=== PATIENT | female | born 1980 | race Caucasian/White ===

== ENCOUNTER 2017-03-26 03:34 | Inpatient (IN) | payer OTHER ==
[~2017-03-26] VITALS: Ht 167.6 cm; Wt 83.9 kg
--- NOTE | 2017-03-26 03:46 | ED GI/GU/ABDOMINAL COMPLAINT ---
History of Present Illness General Chief Complaint: Abdominal Pain/Flank Pain Stated Complaint: ABD PAIN X3 HRS Source: patient Exam Limitations: no limitations Vital Signs & Intake/Output Vital Signs & Intake/Output Vital Signs Date Time Temp Pulse Resp B/P B/P Pulse O2 O2 Flow FiO2 Mean Ox Delivery Rate 03/26 0547 98.0 69 18 125/65 100 Room Air 03/26 0632 98.0 60 18 122/58 100 Room Air 03/26 0528 70 132/64 03/26 0402 Room Air 03/26 0358 97.1 99 20 122/72 96 Room Air Allergies Coded Allergies: NO KNOWN ALLERGIES (09/19/12) Reconcile Medications No Known Home Medications Triage Nurses Notes Reviewed? yes ? n Is pt currently ? No Duration: hour(s):, waxing and waning Timing: recent history Quality/Severity: cramping Location: lower and mid abdomen Radiation: no radiation Activities at Onset: eating Prior Abdominal Problems: similar symptoms Modifying Factors: Worsens With: movement, palpation. Associated Symptoms: nausea/vomiting HPI: 37 yo woman in prior good health presents with lower abdomen for the past 3-4 hours. She notes that she was at a [employer] party last night and may have eaten something suspicious. She had a normal BM last night. She notes feeling nauseous, with diffuse abdominal discomfort. She has no fever, chills, dysuria, vaginal bleeding, diarrhea, vomiting. Upon further questioning, pt shares becoming breathless after minimal exertion. "I get tired when I walk in the super market" for the past month. Past History Travel History Traveled to [place] past 21 day No Medical History Any Pertinent Medical History? 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 No Review of Systems Review of Systems Constitutional: Reports: no symptoms. EENTM: Reports: no symptoms. Respiratory: Reports: no symptoms. Cardiovascular: Reports: no symptoms. GI: Reports: no symptoms. Genitourinary: Reports: no symptoms. Musculoskeletal: Reports: no symptoms. Skin: Reports: no symptoms. Neurological/Psychological: Reports: no symptoms. Hematologic/Endocrine: Reports: no symptoms. Immunologic/Allergic: Reports: no symptoms. All Other Systems: Reviewed and Negative Physical Exam Physical Exam General Appearance: well developed/nourished, mild distress Head: atraumatic, normal appearance Eyes: Bilateral: normal appearance, PERRL, EOMI. Ears, Nose, Throat, Mouth: hearing grossly normal Neck: normal inspection, supple, full range of motion, normal alignment Respiratory: normal breath sounds, chest non-tender, no respiratory distress, quiet respiration, lungs clear Cardiovascular: regular rate/rhythm Gastrointestinal: normal bowel sounds, soft, lower abd tenderness to palpation. no rebound. no guarding. Rectal: normal rectal tone, heme negative stool Back: normal inspection Extremities: normal range of motion, evidence of injury, pelvis stable, injury present Core Measures ACS in differential dx? No Sepsis Present: No Sepsis Focused Exam Completed? No Progress Differential Diagnosis: UTI/pyelo, fibroids vs gastro vs food poisoning vs other. Plan of Care: Orders Procedure Date/time Status BLOOD PRODUCT PICKUP 03/26 607 Active LEUKOCYTE POOR (PACKED CELLS) 03/26 605 Active Add-on Test (ER Only) 03/26 517 Active URINALYSIS 03/26 345 Complete TROPONIN LEVEL 03/26 345 Complete LIPASE 03/26 345 Complete HEPATIC FUNCTION PANEL 03/26 345 Complete HUMAN BETA HCG SCREEN 03/26 345 Complete CBC WITHOUT DIFFERENTIAL 03/26 345 Active BASIC METABOLIC PANEL 03/26 345 Complete AMYLASE 03/26 345 Complete EKG 03/26 345 Active TYPE & SCREEN (NOT X-MATCH) 03/26 345 Active Current Medications Sig/[place] Start time Last Medication Dose Stop Time Status Admin Morphine Sulfate 4 MG ONCE ONE 03/26 614 CAN (Morphine) 03/26 615 Laboratory Tests 03/26/17 0452: Anion Gap 12, Estimated GFR > 60, BUN/Creatinine Ratio 17.5, Glucose 117 H, Calcium 8.3 L, Total Bilirubin 0.1 L, Direct Bilirubin 0.1, AST 16, ALT 35, Alkaline Phosphatase 49, Troponin I 0.03, Total Protein 6.1 L, Albumin 3.7, Amylase 45, Lipase 109, Total Beta HCG NEGATIVE, CBC w Diff MAN DIFF ORDERED, RBC 2.85 L, MCV 54.5 L, MCH 15.3 L, MCHC 28.1 L, RDW 20.1 H, MPV 7.0 L, Gran % 88.1 H, Lymphocytes % 7.1 L, Monocytes % 4.7, Eosinophils % 0, Basophils % 0.1, Absolute Granulocytes 3.8, Segmented Neutrophils 90 H, Absolute Lymphocytes 0.3 L, Lymphocytes 7 L, Monocytes 3, Absolute Monocytes 0.2, Absolute Eosinophils 0, Absolute Basophils 0, Platelet Estimate ADEQUATE, Hypochromic-Microcytic 3+, Poikilocytosis 1+, Ovalocytes 1+ 03/26/17 0352: Urinalysis MANY H, Urine Color STRAW, Urine Clarity CLEAR, Urine pH 6.5, Ur Specific [place] 1.020, Urine Protein NEG, Urine Ketones NEG, Urine Nitrite NEG, Urine Bilirubin NEG, Urine Urobilinogen 0.2, Ur Leukocyte Esterase NEG, Ur Microscopic SEDIMENT EXAMINED, Urine RBC 10-15 H, Urine WBC 3-5 H, Ur Epithelial Cells MANY H, Urine Bacteria MOD H, Urine Mucus MOD H, Urine Hemoglobin SMALL H, Urine Glucose NEG Diagnostic Imaging: Viewed by Me: CT Scan. Discussed w/RAD: CT Scan. Radiology Impression: PATIENT: AGUSTIN ROLDAN PRESENT AGE: 37 PATIENT ACCOUNT NO: [id number] : 78 LOCATION: [facility] ORDERING PHYSICIAN: Steve Hernandez MD SERVICE DATE: 03/26/17 EXAM TYPE: CAT - CT ABD & PELVIS W/O IV CONTRAS EXAMINATION: CT ABDOMEN AND PELVIS WITHOUT CONTRAST CLINICAL INFORMATION: Right lower quadrant pain. Left lower quadrant pain. COMPARISON: None TECHNIQUE: Multidetector volumetric imaging was performed from the superior aspect of the liver through the pubic symphysis. Sagittal and coronal reformatted images were obtained on the technologist's workstation. DLP: 589.80 mGy-cm FINDINGS: LUNG BASES: The visualized lung bases are unremarkable. LIVER, GALLBLADDER, AND BILIARY TREE: The liver is normal in size, shape, and attenuation. No focal hepatic lesion or biliary ductal dilatation is present. The gallbladder is unremarkable with no evidence of radiopaque gallstones, gallbladder wall thickening, or obvious pericholecystic inflammatory changes. PANCREAS: Unremarkable. SPLEEN: Unremarkable. ADRENAL GLANDS: Unremarkable. KIDNEYS AND URETERS: There is a nonobstructive 1 mm stone in the midpole of the left kidney. There is no stone in the right kidney. There is no hydronephrosis and no ureteral calculi. BLADDER: Unremarkable. GASTROINTESTINAL TRACT: Status post gastric bypass surgery. There is no acute abnormality of the bowel. No bowel junction. No bowel wall thickening or edema. Scattered stool in the colon. The appendix is normal. ABDOMINAL WALL: No significant hernia is appreciated. LYMPH NODES: Normal. VASCULAR: Unremarkable. PELVIC VISCERA: Uterus is retroverted. There are calcified fibroids within the uterus. No adnexal abnormality. OSSEOUS STRUCTURES: Unremarkable. IMPRESSION: No acute abnormality CT scan abdomen pelvis. Status post gastric bypass. No acute change of bowel. Normal appendix. There is a 1 mm nonobstructive stone in the left kidney. No hydronephrosis, no ureteral calculi. DICTATED BY: Abraham Bass MD DATE/TIME DICTATED:03/26/17618 MANAGER ANIMAL:BERTHA DATE/TIME TRANSCRIBED:618 CONFIDENTIAL, DO NOT COPY WITHOUT APPROPRIATE AUTHORIZATION. < Electronically signed in Other Vendor System> SIGNED BY: Abraham Bass MD 625 Initial ED EKG: normal axis, normal intervals, normal p-waves, normal QRS complex, normal sinus rhythm Departure Departure Disposition: STILL A PATIENT Condition: Stable Clinical Impression Primary Impression: Abdominal pain Secondary Impressions: Severe anemia Referrals: Patient Has No Primary Care Dr (PCP/Family) Departure Forms: Customer Survey General Discharge Information Prescriptions: Current Visit Scripts No Known Home Medications Observation Note Spoke With: Thiago ALCARAZ,[facility] Patient In: Non-ED OBS Care Area Rationale for Observation: My rational for observation is as follows . pt with anemia merits blood transfusion and workup/ gi consult, serial hct. call placed to GI.
[2017-03-26 04:38] LABS: ABSOLUTE BASOPHIL COUNT 0 /CUMM (0.0-0.2); ABSOLUTE EOSINOPHIL COUNT 0 /CUMM (0.0-0.7)
[2017-03-26 04:51] LABS: EOSINOPHIL % 0 % (0-5)
[2017-03-26 05:14] LABS: ABSOLUTE GRANULOCYTE CT 3.8 /CUMM (1.4-6.5); ABSOLUTE LYMPH COUNT 0.3 /CUMM (1.2-3.4); ABSOLUTE MONOCYTE COUNT 0.2 /CUMM (0.10-0.60); BASOPHIL % 0.1 % (0.0-2.0); GRANULOCYTE % 88.1 % (42.2-75.2); MEAN CORPUSCULAR HGB 15.3 PG (27.0-31.0); MEAN CORPUSCULAR HGB CONC 28.1 G/DL (33.0-37.0); MEAN CORPUSCULAR VOLUME 54.5 FL (81.0-99.0); PLATELET COUNT 308 /CUMM (130-400); RBC DISTRIBUTION WIDTH 20.1 % (11.5-14.5); RED BLOOD CELL CT 2.85 /CUMM (4.20-5.40); WHITE BLOOD CELL COUNT 4.3 /CUMM (4.8-10.8)
[2017-03-26 05:17] LABS: HEMATOCRIT 15.5 % (37-47)
--- NOTE | 2017-03-26 06:26 | CT SCAN REPORT ---
EXAMINATION: CT ABDOMEN AND PELVIS WITHOUT CONTRAST CLINICAL INFORMATION: Right lower quadrant pain. Left lower quadrant pain. COMPARISON: None TECHNIQUE: Multidetector volumetric imaging was performed from the superior aspect of the liver through the pubic symphysis. Sagittal and coronal reformatted images were obtained on the technologist's workstation. DLP: 589.80 mGy-cm FINDINGS: LUNG BASES: The visualized lung bases are unremarkable. LIVER, GALLBLADDER, AND BILIARY TREE: The liver is normal in size, shape, and attenuation. No focal hepatic lesion or biliary ductal dilatation is present. The gallbladder is unremarkable with no evidence of radiopaque gallstones, gallbladder wall thickening, or obvious pericholecystic inflammatory changes. PANCREAS: Unremarkable. SPLEEN: Unremarkable. ADRENAL GLANDS: Unremarkable. KIDNEYS AND URETERS: There is a nonobstructive 1 mm stone in the midpole of the left kidney. There is no stone in the right kidney. There is no hydronephrosis and no ureteral calculi. BLADDER: Unremarkable. GASTROINTESTINAL TRACT: Status post gastric bypass surgery. There is no acute abnormality of the bowel. No bowel junction. No bowel wall thickening or edema. Scattered stool in the colon. The appendix is normal. ABDOMINAL WALL: No significant hernia is appreciated. LYMPH NODES: Normal. VASCULAR: Unremarkable. PELVIC VISCERA: Uterus is retroverted. There are calcified fibroids within the uterus. No adnexal abnormality. OSSEOUS STRUCTURES: Unremarkable. IMPRESSION: No acute abnormality CT scan abdomen pelvis. Status post gastric bypass. No acute change of bowel. Normal appendix. There is a 1 mm nonobstructive stone in the left kidney. No hydronephrosis, no ureteral calculi.
--- NOTE | 2017-03-26 07:22 | History & Physical ---
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
--- NOTE | 2017-03-26 07:23 | History & Physical ---
Delfino ALCARAZ,[facility] 03/26/17 0723: General Information and HPI Statement: I have seen and personally examined AGUSTIN ROLDAN and documented this H&P. The patient is a 37 year old F who presented with a patient stated chief complaint of abdominal pain. Exam Limitations: no limitations History of Present Illness: This is a 37-year-old lady with a past medical history of uterine fibroids, menorrhagia, surgical hx of cystectomy 2004, gastric bpass in 2012 a, presents to [place] ED with chief complaint of acute onset of abdominal pain. Patient reports being awakened by abdominal pain which she describes as sharp pain located in the hypogastric area without any radiation features. Associated symptoms include nausea,bloating, but no vomiting,no fever, diarrhea or bloody stools. Abdominal pain is not related to food intake. She denies any change in her diet or eating any new foods. She does report that she had "rum" before she went to bed. During review of system patient does endorse a history of fatigue and palpitation on exertion. her last menses was 2 weeks ago which she reports is normal heavy, denies any vaginal bleeding. Allergies/Medications Allergies: Coded Allergies: NO KNOWN ALLERGIES (09/19/12) Home Med list No Known Home Medications Observation Initial Note - I have personally examined AGUSTIN ROLDAN on 03/26/17 at 1851. The disposition of AGUSTIN ROLDAN is uncertain at this time and before a determination can be made, she requires a period of observation for the following reasons symptomatic anemia. 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 EENTM: Reports: see HPI. Cardiovascular: Reports: palpitations. Respiratory: Reports: short of breath. GI: Reports: abdominal pain, bloating. Genitourinary: Reports: no symptoms. Musculoskeletal: Reports: no symptoms. Skin: Reports: no symptoms. Neurological/Psychological: Reports: no symptoms. Hematologic/Endocrine: Reports: no symptoms. Immunologic/Allergic: Reports: no symptoms. All Other Systems: Reviewed and Negative Exam & Diagnostic Data Last 24 Hrs of Vital Signs/I&O Vital Signs Date Time Temp Pulse Resp B/P B/P Pulse O2 O2 Flow FiO2 Mean Ox Delivery Rate 03/26 1036 98.4 96 18 132/84 99 Room Air 03/26 0912 98.2 74 18 142/69 98 Room Air 03/26 0754 98.1 72 18 141/80 97 Room Air 03/26 0647 98.0 69 18 125/65 100 Room Air 03/26 0632 98.0 60 18 122/58 100 Room Air 03/26 0528 70 132/64 03/26 0402 Room Air 03/26 0358 97.1 99 20 122/72 96 Room Air Intake & Output 03/26 1600 03/26 0800 03/26 0000 Intake Total 350 Output Total 60 Balance 350 -60 Intake, Blood 350 Product Output, Urine 60 Patient 70.307 kg Weight Weight Reported by Patient Measurement Method Physical Exam General Appearance Alert, Oriented X3, Cooperative Skin No Significant Lesion Skin Temp/Moisture Exam: Warm/Dry Sepsis Skin Exam (color): Normal for Ethnicity HEENT pale conjuctiva Neck Supple, No JVD Lymphatic Cervical nl Cardiovascular Regular Rate, Normal S1, Normal S2 Lungs Clear to Auscultation, Normal Air Movement Abdomen Normal Bowel Sounds, Soft, mild tenderness on palpation of hpogastric area. No guearding or rebound tenderness Neurological Normal Speech Extremities No Clubbing, No Cyanosis, No Edema Vascular Normal Pulses, Pulses Symmetrical Assessment/Plan Assessment: This is a 37-year-old with a past medical history of uterine fibroids, menorrhagia, presents with acute onset of abdominal pain/bloating and a history of fatigue shortness of breath on exertion found to have a hemoglobin of 4.4 and a hematocrit of 15.5. Impression * Abdominal pain. * Symptomatic anemia given the hemoglobin of 4.4 , fatigue and shortness of breath on exertion. The low MCV and low ferritn and Iron suggests iron deficiency anemia. Her acute significant worsening of anemia is multifactorial given that she is not taking any iron supplements, she has a history of menorrhagia probably secondary to the uterine fibroids, and a decreased absorption of iron that can be seen in patients who have undergone gastric bypass. Plan Place in general med observation 2 units of PRBC already ordered Zofran 4 mg every 4-6 hours for nausea Avoid NSAIDs for pain control Will obtain hematology consult, patient will probably need to be iron infusiona in the future. However she should be started on oral Ferrous sulfate trial upon discharge. The 2 units of PRBC will provide sufficient iron for now. Will obtain MORTGAGE PROCESSING CLERK consult for the uterine fibroids which could be contributory to the anemia given the peers of menorrhagia/ As Ranked By This Provider Problem List: 1. Severe anemia 2. Abdominal pain Core Measures/Misc (11/05) Acute Coronary Syndrome ACS Diagnosis: No Congestive Heart Failure Congestive Heart Failure Diagnosis No Cerebrovascular Accident CVA/TIA Diagnosis: No VTE (View Protocol) VTE Risk Factors Acute Medical Illness No Mechanical VTE Prophylaxis d/t N/A MechProphylax Ordered No VTE Pharm Prophylaxis d/t Medical Contraindication Sepsis (View protocol) Sepsis Present: No Annita Lira MD 03/26/17 1407: Attending MD Review Statement Attending Statement Attending MD Statement: examined this patient, discuss w/resident/PA/NUTRITIONAL YEAST SUPERVISOR, agreed w/resident/PA/NUTRITIONAL YEAST SUPERVISOR, reviewed EMR data (avail), discussed with nursing, discussed with case mgmt, reviewed images, amended to note Attending Assessment/Plan: 37-year-old female with past medical history significant for uterine fibroids, menorrhagia, history of gastric bypass in 2012 presented with abdominal pain. Pain started last night. Patient went to a alliance party and ate regular food which included some potato skins, reviewing the as well as some potato chips. Pain started around midnight and then gradually got worse. Initially she thought that she might be having some gas oh she drank some giovanny noemi and went to the bathroom and tried to have a bowel movement. The pain did not get better and she started to dry heave. She presented to the emergency room around 3:00 in the morning. Workup showed that she was profoundly anemic with hemoglobin 4.4 and hematocrit 15.5. Previous H&H that we have in the system is from 2011. Patient was anemic at that time but not this significantly. Patient also admits that she's been getting short of breath and developing dyspnea on exertion with minimal exertion lately. She has menorrhagia and passes clots. Stool is black negative in the emergency room. Vital Signs Date Time Temp Pulse Resp B/P B/P Pulse O2 O2 Flow FiO2 Mean Ox Delivery Rate 03/26 1406 97.0 68 18 128/68 100 Room Air 03/26 1232 98.2 74 18 139/67 100 Room Air 03/26 1036 98.4 96 18 132/84 99 Room Air 03/26 0912 98.2 74 18 142/69 98 Room Air 03/26 0754 98.1 72 18 141/80 97 Room Air 03/26 0647 98.0 69 18 125/65 100 Room Air 03/26 0632 98.0 60 18 122/58 100 Room Air 03/26 0528 70 132/64 02/ 0402 Room Air 03/26 0358 97.1 99 20 122/72 96 Room Air on exam; aox3, nad. cv; s1,s2, rrr resp; clear abd; soft, nt, bs+ ext; no edema Laboratory Tests 03/26 03/26 0452 0352 Chemistry Sodium (137 - 145 mmol/L) 139 Potassium (3.5 - 5.1 mmol/L) 4.1 Chloride (98 - 107 mmol/L) 105 Carbon Dioxide (22 - 30 mmol/L) 22 Anion Gap (5 - 16) 12 BUN (7 - 17 mg/dL) 7 Creatinine (0.5 - 1.0 mg/dL) 0.4 L Estimated GFR (>60 ml/min) > 60 BUN/Creatinine Ratio (7 - 25 %) 17.5 Glucose (65 - 99 mg/dL) 117 H Calcium (8.4 - 10.2 mg/dL) 8.3 L Iron (37 - 170 ug/dL) 12 L TIBC (265 - 497 ug/dL) 490 Ferritin (6.24 - 137 ng/mL) 0.9 L Total Bilirubin (0.2 - 1.3 mg/dL) 0.1 L Direct Bilirubin (< 0.4 mg/dL) 0.1 AST (14 - 36 U/L) 16 ALT (9 - 52 U/L) 35 Alkaline Phosphatase (<127 U/L) 49 Troponin I (< 0.11 ng/ml) 0.03 Total Protein (6.3 - 8.2 g/dL) 6.1 L Albumin (3.5 - 5.0 g/dL) 3.7 Amylase (30 - 110 U/L) 45 Lipase (23 - 300 U/L) 109 Total Beta HCG (NEGATIVE) NEGATIVE Hematology CBC w Diff MAN DIFF ORDERED WBC (4.8 - 10.8 /CUMM) 4.3 L RBC (4.20 - 5.40 /CUMM) 2.85 L Hgb (12.0 - 16.0 G/DL) 4.4 *L Hct (37 - 47 %) 15.5 *L MCV (81.0 - 99.0 FL) 54.5 L MCH (27.0 - 31.0 PG) 15.3 L MCHC (33.0 - 37.0 G/DL) 28.1 L RDW (11.5 - 14.5 %) 20.1 H Plt Count (130 - 400 /CUMM) 308 MPV (7.4 - 10.4 FL) 7.0 L Gran % (42.2 - 75.2 %) 88.1 H Lymphocytes % (20.5 - 51.1 %) 7.1 L Monocytes % (1.7 - 9.3 %) 4.7 Eosinophils % (0 - 5 %) 0 Basophils % (0.0 - 2.0 %) 0.1 Absolute Granulocytes (1.4 - 6.5 /CUMM) 3.8 Segmented Neutrophils (42.2 - 75.2 %) 90 H Absolute Lymphocytes (1.2 - 3.4 /CUMM) 0.3 L Lymphocytes (20.5 - 51.1 %) 7 L Monocytes (1.7 - 9.3 %) 3 Absolute Monocytes (0.10 - 0.60 /CUMM) 0.2 Absolute Eosinophils (0.0 - 0.7 /CUMM) 0 Absolute Basophils (0.0 - 0.2 /CUMM) 0 Platelet Estimate (ADEQUATE) ADEQUATE Hypochromic-Microcytic 3+ Poikilocytosis 1+ Ovalocytes 1+ Urines Urinalysis MANY H Urine Color (YEL,AMB,STR) STRAW Urine Clarity (CLEAR) CLEAR Urine pH (5.0 - 8.0) 6.5 Ur Specific [place] (1.001 - 1.035) 1.020 Urine Protein (NEG,<30 MG/DL) NEG Urine Ketones (NEG) NEG Urine Nitrite (NEG) NEG Urine Bilirubin (NEG) NEG Urine Urobilinogen (0.1 - 1.0 EU/dl) 0.2 Ur Leukocyte Esterase (NEG) NEG Ur Microscopic SEDIMENT EXAMINED Urine RBC (0 - 5 /HPF) 10-15 H Urine WBC (0 - 2 /HPF) 3-5 H Ur Epithelial Cells (NONE,FEW) MANY H Urine Bacteria (NEG/NONE) MOD H Urine Mucus (FEW,NONE) MOD H Urine Hemoglobin (NEG) SMALL H Urine Glucose (N MG/DL) NEG A/P; 37-year-old female with past medical history significant for uterine fibroids, menorrhagia, history of gastric bypass in 2012 is placed on general medicine observation with the abdominal pain as well as acute anemia. CT abdomen and pelvis is negative for any acute pathology. Patient's stool is guaiac negative. Patient has microcytic anemia and iron studies show profoundly low iron levels. We'll consult hematology. We'll also consult MORTGAGE PROCESSING CLERK for these fibroids. Patient has been started on clear liquid diet. It will be advanced as she could tolerate. DVT prophylaxis; ALPS. Full code.
[2017-03-26 15:41] LABS: ABSOLUTE BASOPHIL COUNT 0.1 /CUMM (0.0-0.2); ABSOLUTE EOSINOPHIL COUNT 0 /CUMM (0.0-0.7); ABSOLUTE GRANULOCYTE CT 3.4 /CUMM (1.4-6.5); ABSOLUTE LYMPH COUNT 0.9 /CUMM (1.2-3.4); ABSOLUTE MONOCYTE COUNT 0.5 /CUMM (0.10-0.60); BASOPHIL % 1.9 % (0.0-2.0); EOSINOPHIL % 0.2 % (0-5); GRANULOCYTE % 69.2 % (42.2-75.2); HEMATOCRIT 20.1 % (37-47); MEAN CORPUSCULAR HGB CONC 30.3 G/DL (33.0-37.0); MEAN PLATELET VOLUME 6.9 FL (7.4-10.4); PLATELET COUNT 313 /CUMM (130-400); RBC DISTRIBUTION WIDTH 29.2 % (11.5-14.5); RED BLOOD CELL CT 3.28 /CUMM (4.20-5.40); WHITE BLOOD CELL COUNT 4.9 /CUMM (4.8-10.8)
[2017-03-26 15:48] LABS: MEAN CORPUSCULAR HGB 18.6 PG (27.0-31.0); MEAN CORPUSCULAR VOLUME 61.3 FL (81.0-99.0)
--- NOTE | 2017-03-26 15:53 | Cons- OBGYN ---
General Information and HPI Consulting Request Date of Consult: 03/26/17 Requested By: Annita Lira MD Reason for Consult: Anemia and AUB and fibroid uterus Source of Information: patient, old records Exam Limitations: no limitations History of Present Illness: Patient is a 37 year old female who presents for acute lower abdominal pain. Patient with recent completion of menses. Patient with 6 month to one year history of heavier menstrual cycles where the first 3 days are heavy (changing pads every 3 hours) and total cycle length of 6 days. Allergies/Medications Allergies: Coded Allergies: NO KNOWN ALLERGIES (09/19/12) Home Med List: No Known Home Medications Current Medications: Current Medications Sig/[place] Start time Last Medication Dose Route Stop Time Status Admin Acetaminophen 1,000 MG Q8P PRN 03/26 1245 AC IV Acetaminophen 1,000 MG ONCE ONE 03/26 0445 DC 03/26 N/A 1 UNIT IV 03/26 045 0441 Acetaminophen 0 .STK-MED ONE 03/26 0438 DC IV Hydromorphone HCl 0.4 MG Q4P PRN 03/26 1245 AC IV Hydromorphone HCl 0 .STK-MED ONE 03/26 0647 DC .ROUTE Hydromorphone HCl 0.5 MG ONCE ONE 03/26 0630 DC 03/26 IV 03/26 0631 0645 Ketorolac 30 MG ONCE ONE 03/26 0445 DC 03/26 Tromethamine IV 03/26 0446 0441 Ketorolac 0 .STK-MED ONE 03/26 0439 DC Tromethamine .ROUTE Morphine Sulfate 4 MG ONCE ONE 03/26 0615 CAN IV 03/26 0616 Ondansetron HCl 0 .STK-MED ONE 03/26 1052 DC .ROUTE Ondansetron HCl 4 MG Q6P PRN 03/26 1015 AC 03/26 IV 1049 Ondansetron HCl 4 MG ONCE ONE 03/26 0445 DC 03/26 IV 03/26 0446 0441 Ondansetron HCl 0 .STK-MED ONE 03/26 0439 DC .ROUTE Sodium Chloride 1,000 ML BOLUS ONE 03/26 0430 DC 03/26 IV 03/26 0529 0441 Past History Medical History Blood Transfusion Hx: No Neurological: NONE EENT: NONE Cardiovascular: NONE Respiratory: NONE Gastrointestinal: GASTRIC BYPASS 2013 Hepatic: NONE Renal: NONE Musculoskeletal: NONE Psychiatric: NONE Endocrine: NONE Blood Disorders: anemia Cancer(s): NONE 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 Home Who Do You Live With? spouse, child Services at Home: None Primary Language: Setswana Smoking Status: Unknown If Ever Smoked ETOH Use: occasional use Illicit Drug Use: denies illicit drug use Living Will? unknown Power of Bonding Machine Setter/HCP? unknown Other Social History: Works at [employer] Functional Ability ADLs Independent: dressing, eating, toileting, bathing. Ambulation: independent IADLs Independent: shopping, housework, finances, food prep, telephone, transportation , medication admin. Employment History Employment: Employed Profession/Employer: [employer] Retired? no Review of Systems Review of Systems Constitutional: Reports: weakness. EENTM: Denies: no symptoms. Cardiovascular: Denies: no symptoms. Respiratory: Reports: short of breath. GI: Denies: no symptoms. Genitourinary: Denies: no symptoms. Musculoskeletal: Denies: no symptoms. Skin: Denies: no symptoms. Neurological/Psychological: Denies: no symptoms. Hematologic/Endocrine: Reports: bleeding. Immunologic/Allergic: Denies: no symptoms. All Other Systems: Reviewed and Negative Exam & Diagnostic Data Vital Signs and I&O Vital Signs Date Time Temp Pulse Resp B/P B/P Pulse O2 O2 Flow FiO2 Mean Ox Delivery Rate 03/26 1406 97.0 68 18 128/68 100 Room Air 03/26 1232 98.2 74 18 139/67 100 Room Air 03/26 1036 98.4 96 18 132/84 99 Room Air 03/26 0912 98.2 74 18 142/69 98 Room Air / 0754 98.1 72 18 141/80 97 Room Air 03/26 0647 98.0 69 18 125/65 100 Room Air 03/26 0632 98.0 60 18 122/58 100 Room Air 03/26 0528 70 132/64 / 0402 Room Air 03/26 0358 97.1 99 20 122/72 96 Room Air Intake & Output 03/26 1600 03/26 0800 / 0000 03/25 1600 03/25 0800 02 0000 Intake Total 350 Output Total 60 Balance 350 -60 Intake, Blood 350 Product Output, Urine 60 Patient 70.307 kg Weight Weight Reported by Patient Measurement Method Physical Exam General Appearance: well developed/nourished, no apparent distress, alert, comfortable Head: atraumatic, normal appearance Eyes: Bilateral: normal appearance. Neck: supple Respiratory: chest non-tender Cardiovascular: regular rate/rhythm Gastrointestinal: soft, non-tender Back: no vertebral tenderness Extremities: normal inspection Neurologic/Psych: no motor/sensory deficits, awake, alert, oriented x 3 Cranial Nerves: normal hearing, normal speech Skin: intact, normal color Reproductive: Normal female genitalia Pelvic: Appearance Normal, No Cervical Tenderness, No Discharge Other Physical Findings: No cmt Normal appearing size uterus No adnexal fullness No adnexal pain Cervix palpates normal Last 24 Hours of Labs: Laboratory Tests 03/26 03/26 1529 0452 Chemistry Sodium (137 - 145 mmol/L) 139 Potassium (3.5 - 5.1 mmol/L) 4.1 Chloride (98 - 107 mmol/L) 105 Carbon Dioxide (22 - 30 mmol/L) 22 Anion Gap (5 - 16) 12 BUN (7 - 17 mg/dL) 7 Creatinine (0.5 - 1.0 mg/dL) 0.4 L Estimated GFR (>60 ml/min) > 60 BUN/Creatinine Ratio (7 - 25 %) 17.5 Glucose (65 - 99 mg/dL) 117 H Calcium (8.4 - 10.2 mg/dL) 8.3 L Iron (37 - 170 ug/dL) 12 L TIBC (265 - 497 ug/dL) 490 Ferritin (6.24 - 137 ng/mL) 0.9 L Total Bilirubin (0.2 - 1.3 mg/dL) 0.1 L Direct Bilirubin (< 0.4 mg/dL) 0.1 AST (14 - 36 U/L) 16 ALT (9 - 52 U/L) 35 Alkaline Phosphatase (<127 U/L) 49 Troponin I (< 0.11 ng/ml) 0.03 Total Protein (6.3 - 8.2 g/dL) 6.1 L Albumin (3.5 - 5.0 g/dL) 3.7 Amylase (30 - 110 U/L) 45 Lipase (23 - 300 U/L) 109 Total Beta HCG (NEGATIVE) NEGATIVE Hematology CBC w Diff Pending MAN DIFF ORDERED WBC (4.8 - 10.8 /CUMM) Pending 4.3 L RBC (4.20 - 5.40 /CUMM) Pending 2.85 L Hgb (12.0 - 16.0 G/DL) Pending 4.4 *L Hct (37 - 47 %) Pending 15.5 *L MCV (81.0 - 99.0 FL) Pending 54.5 L MCH (27.0 - 31.0 PG) Pending 15.3 L MCHC (33.0 - 37.0 G/DL) Pending 28.1 L RDW (11.5 - 14.5 %) Pending 20.1 H Plt Count (130 - 400 /CUMM) Pending 308 MPV (7.4 - 10.4 FL) Pending 7.0 L Gran % (42.2 - 75.2 %) 88.1 H Lymphocytes % (20.5 - 51.1 %) 7.1 L Monocytes % (1.7 - 9.3 %) 4.7 Eosinophils % (0 - 5 %) 0 Basophils % (0.0 - 2.0 %) 0.1 Absolute Granulocytes (1.4 - 6.5 /CUMM) 3.8 Segmented Neutrophils (42.2 - 75.2 %) 90 H Absolute Lymphocytes (1.2 - 3.4 /CUMM) 0.3 L Lymphocytes (20.5 - 51.1 %) 7 L Monocytes (1.7 - 9.3 %) 3 Absolute Monocytes (0.10 - 0.60 /CUMM) 0.2 Absolute Eosinophils (0.0 - 0.7 /CUMM) 0 Absolute Basophils (0.0 - 0.2 /CUMM) 0 Platelet Estimate (ADEQUATE) ADEQUATE Hypochromic-Microcytic 3+ Poikilocytosis 1+ Ovalocytes 1+ 02/05 0352 Urines Urinalysis MANY H Urine Color (YEL,AMB,STR) STRAW Urine Clarity (CLEAR) CLEAR Urine pH (5.0 - 8.0) 6.5 Ur Specific [place] (1.001 - 1.035) 1.020 Urine Protein (NEG,<30 MG/DL) NEG Urine Ketones (NEG) NEG Urine Nitrite (NEG) NEG Urine Bilirubin (NEG) NEG Urine Urobilinogen (0.1 - 1.0 EU/dl) 0.2 Ur Leukocyte Esterase (NEG) NEG Ur Microscopic SEDIMENT EXAMINED Urine RBC (0 - 5 /HPF) 10-15 H Urine WBC (0 - 2 /HPF) 3-5 H Ur Epithelial Cells (NONE,FEW) MANY H Urine Bacteria (NEG/NONE) MOD H Urine Mucus (FEW,NONE) MOD H Urine Hemoglobin (NEG) SMALL H Urine Glucose (N MG/DL) NEG Imaging Results: Ct shows calcified fibroids Normal adnexae and no hydronephrosis Other Results: hct 15 Assessment/Plan Assessment/Plan 37 year old female with AUB and acute on chronic anemia. She presented with abdominal pain and weakness. To be admitted to Medicine. She is s/p 2 unit transfusion. Snagger. Clinically uterus is normal size. CT noted calcified fibroids (more likely to be degenerated) and no adnexal mass nor hydronephrosis. I discused that in my opinion her anemia was acute on chronic. Ddx of her AUB is that of adenomyosis (histroy of csection x 2) and or fibroids. At present she isnt bleeding so no need for intervention. If vaginal bleeding occurs than depoprovera 150 mg and provera 20-30 mg daily to control AUB. Pap negative 2016 and normal exam so next pap 2019. I stated that once she is discharged I will perform transvaginal ultrasound and saline contrast ultrsound to determine if AUB is related to submucus myoma or nor. I will also perform endometrial biopsy to assess for hyperplasia. Uterus is not significantly enlarged so she is a good candidate for hormonal containing IUD. Hematology. She is with gastric bypass which would increase her risk of anemia and in addition her nutrition is not high in iron containing foods. We discussed iron containing foods which may help boost her iron stores. She may need Iron infusion periodically in the future. Goal though now to reduce menstrual related blood loss. Recommend high dose vitamin c as well. FMH of breast cancer in one second and one primary relative but both menopausal in timing. So in my opinion no need for Brca testing however mammogram yearly indicated in my opinon. Face to face hospital time 35 minutes. Patient understands treatment plan Problem List: 1. Severe anemia 2. Abnormal uterine bleeding Consult Acknowledgment - Thank you for your consult request.
[2017-03-26 21:31] LABS: ABSOLUTE BASOPHIL COUNT 0 /CUMM (0.0-0.2); ABSOLUTE EOSINOPHIL COUNT 0 /CUMM (0.0-0.7); ABSOLUTE GRANULOCYTE CT 3.4 /CUMM (1.4-6.5); ABSOLUTE LYMPH COUNT 1.1 /CUMM (1.2-3.4); ABSOLUTE MONOCYTE COUNT 0.6 /CUMM (0.10-0.60); BASOPHIL % 0.7 % (0.0-2.0); EOSINOPHIL % 0.2 % (0-5); GRANULOCYTE % 66.1 % (42.2-75.2); HEMATOCRIT 22.1 % (37-47); MEAN CORPUSCULAR HGB 19.3 PG (27.0-31.0); MEAN CORPUSCULAR HGB CONC 30.5 G/DL (33.0-37.0); MEAN CORPUSCULAR VOLUME 63.4 FL (81.0-99.0); MEAN PLATELET VOLUME 7.8 FL (7.4-10.4); PLATELET COUNT 297 /CUMM (130-400); RBC DISTRIBUTION WIDTH 29.8 % (11.5-14.5); RED BLOOD CELL CT 3.49 /CUMM (4.20-5.40); WHITE BLOOD CELL COUNT 5.1 /CUMM (4.8-10.8)
[2017-03-26 22:24] VITALS: BP 124/80
[2017-03-27 06:12] VITALS: BP 100/64
--- NOTE | 2017-03-27 08:06 | PN-Observation ---
Observation Note Observation Note _ I have personally examined AGUSTIN ROLDAN. her disposition is uncertain at this time. Before a determination can be made, she requires continued observation for the following reasons symptomatic anemia. Assessment/Plan Assessment: This is a 37-year-old with a past medical history of uterine fibroids, menorrhagia, presents with acute onset of abdominal pain/bloating and a history of fatigue shortness of breath on exertion found to have a hemoglobin of 4.4 and a hematocrit of 15.5. Impression * Abdominal pain. * Symptomatic anemia given the hemoglobin of 4.4 on presentation, fatigue and shortness of breath on exertion. She is now s/p 3 units PRBC with hemoglobin at 6.1. The low MCV and low ferritn and Iron suggests iron deficiency anemia. Her acute significant worsening of anemia is multifactorial given that she is not taking any iron supplements, she has a history of menorrhagia probably secondary to the uterine fibroids, and a decreased absorption of iron that can be seen in patients who have undergone gastric bypass. Plan Will consider making patient a full admit given the still low h/h Will repeat CBC at 1900 and transfuse if needed Avoid NSAIDs for pain control Will start ferrous sulfate on discharge Problem List: 1. Iron deficiency anemia 2. Severe anemia Subjective Follow-up For: ANEMIA Subjective: Seen and examined at bedside. Does not endorse any increased shortness of breath, chest pain, palpitation. No acute overnight events reported by nursing staff. Review of Systems Constitutional: Reports: see HPI. Objective Last 24 Hrs of Vital Signs/I&O Vital Signs Date Time Temp Pulse Resp B/P B/P Pulse O2 O2 Flow FiO2 Mean Ox Delivery Rate 03/27 1432 98.3 82 18 100/70 98 03/27 0612 98.0 68 20 100/64 98 Room Air 03/26 2224 98.6 86 20 124/80 100 Room Air 03/26 2015 98.3 84 18 122/81 100 Room Air Intake & Output 03/27 1600 03/27 0800 03/27 0000 Intake Total 315 831 6156 Output Total Balance 507 284 6507 Intake, Blood 700 Product Intake, Oral 240 360 440 Number 1 Bowel Movements Patient 83.915 kg Weight Physical Exam General Appearance: Alert, Oriented X3, Cooperative Other Physical Findings: Skin No Significant Lesion Skin Temp/Moisture Exam: Warm/Dry Sepsis Skin Exam (color): Normal for Ethnicity HEENT pale conjuctiva Neck Supple, No JVD Lymphatic Cervical nl Cardiovascular Regular Rate, Normal S1, Normal S2 Lungs Clear to Auscultation, Normal Air Movement Abdomen Normal Bowel Sounds, Soft, mild tenderness on palpation of hpogastric area. No guearding or rebound tenderness Neurological Normal Speech Extremities No Clubbing, No Cyanosis, No Edema Vascular Normal Pulses, Pulses Symmetrical
[2017-03-27] MEDS ORDERED: FERROUS SULFAT325 M3 PO (08:39)
--- NOTE | 2017-03-27 08:43 | Patient Discharge Instructions ---
Discharge Instructions General Discharge Information You were seen/treated for: Anemia Abdominal pain Special Instructions: Please seek medical attention if you develop shortness of breath or having chest pain/heart racing Please seek medical attention if you have increased stomach pain, fever,vomiting or peristent diarrhea Please start taking the Iron pills Please follow up with your primary care within 3-4 days Please make an appointment with Xavier Fleming (metal inspector) Please make an appointment with Dr Braun (fiber machine tender). Acute Coronary Syndrome Inclusion Criteria At DC or during hospital stay patient has or had the following: ACS DIAGNOSIS No Discharge Core Measures Meds if any: Prescribed or Continued at Discharge Meds if any: NOT Prescribed or Continued at Discharge Congestive Heart Failure Inclusion Criteria At DC or during hospital stay patient has or had the following: CHF DIAGNOSIS No Discharge Core Measures Meds if any: Prescribed or Continued at Discharge Meds if any: NOT Prescribed or Continued at Discharge Cerebrovascular accident Inclusion Criteria At DC or during hospital stay patient has or had the following: CVA/TIA Diagnosis No Discharge Core Measures Meds if any: Prescribed or Continued at Discharge Meds if any: NOT Prescribed or Continued at Discharge Venous thromboembolism Inclusion Criteria VTE Diagnosis No VTE Type NONE VTE Confirmed by (Test) NONE Discharge Core Measures - Per Current guidelines, there needs to be overlap - treatment for the first 5 days of Warfarin therapy. - If discharged on Warfarin prior to 5 days of - overlap therapy, the patient will need to be - assessed for post discharge needs including - *Post discharge parental anticoagulation - *Warfarin and/or parental anticoagulation education - *Follow up date to check INR post discharge At least 5 days overlap therapy as Inpatient No Meds if any: Prescribed or Continued at Discharge Note: Overlap Therapy is Warfarin and Anticoagulant Meds if any: NOT Prescribed or Continued at Discharge
[2017-03-27 09:02] LABS: ABSOLUTE BASOPHIL COUNT 0.1 /CUMM (0.0-0.2); ABSOLUTE EOSINOPHIL COUNT 0 /CUMM (0.0-0.7); ABSOLUTE GRANULOCYTE CT 1.8 /CUMM (1.4-6.5); ABSOLUTE LYMPH COUNT 0.8 /CUMM (1.2-3.4); ABSOLUTE MONOCYTE COUNT 0.2 /CUMM (0.10-0.60); BASOPHIL % 1.8 % (0.0-2.0); EOSINOPHIL % 1.3 % (0-5); GRANULOCYTE % 60.6 % (42.2-75.2); MEAN CORPUSCULAR HGB 19.4 PG (27.0-31.0); MEAN CORPUSCULAR HGB CONC 30.9 G/DL (33.0-37.0); MEAN CORPUSCULAR VOLUME 62.8 FL (81.0-99.0); MEAN PLATELET VOLUME 7.4 FL (7.4-10.4); PLATELET COUNT 245 /CUMM (130-400); RBC DISTRIBUTION WIDTH 29.3 % (11.5-14.5); RED BLOOD CELL CT 3.16 /CUMM (4.20-5.40)
[2017-03-27 09:08] LABS: HEMATOCRIT 19.9 % (37-47)
[2017-03-27] MEDS ORDERED: NIFEREX TABLET1 EACH PO (09:10)
--- NOTE | 2017-03-27 10:00 | Cons- Hematology ---
General Information and HPI Consulting Request Date of Consult: 03/27/17 Requested By: Annita Lira MD Reason for Consult: microcytic anemia Source of Information: patient Exam Limitations: no limitations History of Present Illness: Ms. Mathis is a 37-year-old female with uterine fibroid, menorrhagia, and gastric bypass in 2012 who presented to the hospital with abdominal pain, weakness, fatigue, and dyspnea on exertion. Symptom has been ongoing for at least 2 weeks. She has decreased appetite. She has some lightheadedness. She denies any chest pain. She does not get "winded" with walking. She does have heavy menses. She denies any fever or chills. She has no nausea or vomiting. On presentation to the hospital, she was noted to have a hemoglobin 4.4 and hematocrit of 15.5. MCV was noted to be 54.5. Platelet count is 366639. Iron study demonstrated serum iron of 12 with a ferritin of 0.9. She was given 3 units of packed RBC. This morning she feels little bit better. She denies any new symptoms. She has never had a colonoscopy. She denies any blood in stool urine. She does have heavy menses. Her diet does not contain a lot of red meat or beans. She has not had any fever or chills. Allergies/Medications Allergies: Coded Allergies: NO KNOWN ALLERGIES (09/19/12) Home Med List: Iron Ag,Ps/C/Fa6/B12/Zn/SA/Sto (Niferex Tablet) 150MG-60-1 TABLET 1 TAB PO BID ANEMIA Current Medications: Current Medications Sig/[place] Start time Last Medication Dose Route Stop Time Status Admin Acetaminophen 1,000 MG Q8P PRN 03/26 1245 AC IV Ascorbic Acid 500 MG BID 03/26 2200 AC 03/26 PO 2248 Hydromorphone HCl 0.4 MG Q4P PRN 03/26 1245 AC IV Influenza Virus 0.5 ML ONCE ONE 03/26 2100 DC Vaccine IM 03/26 2101 Ondansetron HCl 0 .STK-MED ONE 03/26 1052 DC .ROUTE Ondansetron HCl 4 MG Q6P PRN 03/26 1015 AC 03/26 IV 1049 Review of Systems Review of Systems Constitutional: Reports: malaise, weakness. Denies: chills, diaphoresis, fever. Cardiovascular: Denies: chest pain, edema, palpitations. Respiratory: Reports: short of breath. GI: Reports: abdominal pain. Denies: bloating, constipation, diarrhea, melena, nausea, vomiting. Genitourinary: Denies: dysuria, hematuria. Musculoskeletal: Denies: back pain. Hematologic/Endocrine: Denies: bruising, bleeding. 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 Home Who Do You Live With? spouse, child Services at Home: None Primary Language: Uzbek Smoking Status: Never Smoked ETOH Use: occasional use Illicit Drug Use: denies illicit drug use Living Will? unknown Power of Manager Hvac/HCP? unknown Other Social History: Works at [employer] Functional Ability ADLs Independent: dressing, eating, toileting, bathing. Ambulation: independent IADLs Independent: shopping, housework, finances, food prep, telephone, transportation , medication admin. Employment History Employment: Employed Profession/Employer: [employer] Exam & Diagnostic Data Vital Signs and I&O Vital Signs Date Time Temp Pulse Resp B/P B/P Pulse O2 O2 Flow FiO2 Mean Ox Delivery Rate 03/27 0612 98.0 68 20 100/64 98 Room Air 03/26 2224 98.6 86 20 124/80 100 Room Air 03/26 2016 98.3 84 18 122/81 100 Room Air 02/05 1829 98.7 84 18 122/60 99 Room Air 02/ 1813 98.9 77 18 117/60 100 Room Air 02/ 1615 97.2 74 18 121/63 100 Room Air 02/05 1406 97.0 68 18 128/68 100 Room Air 02/05 1232 98.2 74 18 139/67 100 Room Air 02/05 1036 98.4 96 18 132/84 99 Room Air Intake & Output 03/27 1600 02/06 0800 02/ 0000 Intake Total 360 1140 Output Total Balance 360 1140 Intake, Blood 700 Product Intake, Oral 360 440 Patient 83.915 kg Weight Physical Exam General Appearance: well developed/nourished, no apparent distress, alert, awake , comfortable Head: atraumatic, normal appearance Eyes: Bilateral: PERRL. Ears, Nose, Throat: normal pharynx Respiratory: normal breath sounds, chest non-tender, no respiratory distress Cardiovascular: regular rate/rhythm Gastrointestinal: normal bowel sounds, soft, non-tender Extremities: normal inspection Cranial Nerves: normal hearing, normal speech, PERRL Skin: normal color Last 48 Hours of Lab Results: Laboratory Tests 03/27 03/26 6779 2107 Hematology CBC w Diff NO MAN DIFF REQ NO MAN DIFF REQ WBC (4.8 - 10.8 /CUMM) 3.0 L 5.1 RBC (4.20 - 5.40 /CUMM) 3.16 L 3.49 L Hgb (12.0 - 16.0 G/DL) 6.1 *L 6.7 *L Hct (37 - 47 %) 19.9 *L 22.1 L MCV (81.0 - 99.0 FL) 62.8 L 63.4 L MCH (27.0 - 31.0 PG) 19.4 L 19.3 L MCHC (33.0 - 37.0 G/DL) 30.9 L 30.5 L RDW (11.5 - 14.5 %) 29.3 H 29.8 H Plt Count (130 - 400 /CUMM) 245 297 MPV (7.4 - 10.4 FL) 7.4 7.8 Gran % (42.2 - 75.2 %) 60.6 66.1 Lymphocytes % (20.5 - 51.1 %) 28.1 21.9 Monocytes % (1.7 - 9.3 %) 8.2 11.1 H Eosinophils % (0 - 5 %) 1.3 0.2 Basophils % (0.0 - 2.0 %) 1.8 0.7 Absolute Granulocytes (1.4 - 6.5 /CUMM) 1.8 3.4 Absolute Lymphocytes (1.2 - 3.4 /CUMM) 0.8 L 1.1 L Absolute Monocytes (0.10 - 0.60 /CUMM) 0.2 0.6 Absolute Eosinophils (0.0 - 0.7 /CUMM) 0 0 Absolute Basophils (0.0 - 0.2 /CUMM) 0.1 0 03/26 03/26 1529 0452 Chemistry Sodium (137 - 145 mmol/L) 139 Potassium (3.5 - 5.1 mmol/L) 4.1 Chloride (98 - 107 mmol/L) 105 Carbon Dioxide (22 - 30 mmol/L) 22 Anion Gap (5 - 16) 12 BUN (7 - 17 mg/dL) 7 Creatinine (0.5 - 1.0 mg/dL) 0.4 L Estimated GFR (>60 ml/min) > 60 BUN/Creatinine Ratio (7 - 25 %) 17.5 Glucose (65 - 99 mg/dL) 117 H Calcium (8.4 - 10.2 mg/dL) 8.3 L Iron (37 - 170 ug/dL) 12 L TIBC (265 - 497 ug/dL) 490 Ferritin (6.24 - 137 ng/mL) 0.9 L Total Bilirubin (0.2 - 1.3 mg/dL) 0.1 L Direct Bilirubin (< 0.4 mg/dL) 0.1 AST (14 - 36 U/L) 16 ALT (9 - 52 U/L) 35 Alkaline Phosphatase (<127 U/L) 49 Troponin I (< 0.11 ng/ml) 0.03 Total Protein (6.3 - 8.2 g/dL) 6.1 L Albumin (3.5 - 5.0 g/dL) 3.7 Amylase (30 - 110 U/L) 45 Lipase (23 - 300 U/L) 109 Total Beta HCG (NEGATIVE) NEGATIVE Hematology CBC w Diff NO MAN DIFF REQ MAN DIFF ORDERED WBC (4.8 - 10.8 /CUMM) 4.9 4.3 L RBC (4.20 - 5.40 /CUMM) 3.28 L 2.85 L Hgb (12.0 - 16.0 G/DL) 6.1 *L 4.4 *L Hct (37 - 47 %) 20.1 L 15.5 *L MCV (81.0 - 99.0 FL) 61.3 L 54.5 L MCH (27.0 - 31.0 PG) 18.6 L 15.3 L MCHC (33.0 - 37.0 G/DL) 30.3 L 28.1 L RDW (11.5 - 14.5 %) 29.2 H 20.1 H Plt Count (130 - 400 /CUMM) 313 308 MPV (7.4 - 10.4 FL) 6.9 L 7.0 L Gran % (42.2 - 75.2 %) 69.2 88.1 H Lymphocytes % (20.5 - 51.1 %) 17.9 L 7.1 L Monocytes % (1.7 - 9.3 %) 10.8 H 4.7 Eosinophils % (0 - 5 %) 0.2 0 Basophils % (0.0 - 2.0 %) 1.9 0.1 Absolute Granulocytes (1.4 - 6.5 /CUMM) 3.4 3.8 Segmented Neutrophils (42.2 - 75.2 %) 90 H Absolute Lymphocytes (1.2 - 3.4 /CUMM) 0.9 L 0.3 L Lymphocytes (20.5 - 51.1 %) 7 L Monocytes (1.7 - 9.3 %) 3 Absolute Monocytes (0.10 - 0.60 /CUMM) 0.5 0.2 Absolute Eosinophils (0.0 - 0.7 /CUMM) 0 0 Absolute Basophils (0.0 - 0.2 /CUMM) 0.1 0 Platelet Estimate (ADEQUATE) ADEQUATE Hypochromic-Microcytic 3+ Poikilocytosis 1+ Ovalocytes 1+ 02/05 0352 Urines Urinalysis MANY H Urine Color (YEL,AMB,STR) STRAW Urine Clarity (CLEAR) CLEAR Urine pH (5.0 - 8.0) 6.5 Ur Specific [place] (1.001 - 1.035) 1.020 Urine Protein (NEG,<30 MG/DL) NEG Urine Ketones (NEG) NEG Urine Nitrite (NEG) NEG Urine Bilirubin (NEG) NEG Urine Urobilinogen (0.1 - 1.0 EU/dl) 0.2 Ur Leukocyte Esterase (NEG) NEG Ur Microscopic SEDIMENT EXAMINED Urine RBC (0 - 5 /HPF) 10-15 H Urine WBC (0 - 2 /HPF) 3-5 H Ur Epithelial Cells (NONE,FEW) MANY H Urine Bacteria (NEG/NONE) MOD H Urine Mucus (FEW,NONE) MOD H Urine Hemoglobin (NEG) SMALL H Urine Glucose (N MG/DL) NEG Imaging/Other Studies: CT abdomen/pelvis 03/26/2017: No acute abnormality CT scan abdomen pelvis. Status post gastric bypass. No acute change of bowel. Normal appendix. There is a 1 mm nonobstructive stone in the left kidney. No hydronephrosis, no ureteral calculi. Assessment/Plan Assessment: Ms. Mathis is a 37-year-old female with uterine fibroid, menorrhagia, and gastric bypass in 2012 who presented to the hospital with abdominal pain, weakness, fatigue, and dyspnea on exertion. On presentation to the emergency room at [facility], she was noted to have severe microcytic anemia. Hemoglobin was 4.4 with a hematocrit of 15.5. Her MCV was 54.5. Iron study demonstrated serum iron of 12 with a ferritin of 0.9. She was given a total of 3 units of packed RBC. Hemoglobin is still 6.1 today. She does have heavy menses. She also has a gastric bypass history. Her anemia is likely secondary to severe iron deficiency. She will need iron repletion. She has received 3 units of packed RBC which will give her at least 600 mg of iron. She should be started on oral iron 3 times a day. She will need to follow up as outpatient with potential need for parenteral iron. She will increase her oral intake of iron-containing food. She will discussed with her delivery room supervisor physician regarding management of menorrhagia. She may need a colonoscopy but will check stool guaiac. In addition to her iron deficiency, she should be checked for other nutritional deficiencies such as folate and B12 given the gastric bypass. Recommendations: Iron deficiency anemia: - start oral ferrous sulfate 325 mg t.i.d. with vitamin-C - consider parenteral iron as an outpatient - menorrhagia management as per Chief Sustainability Officer - check stool guaiac - follow up 1 to 2 weeks after discharge for consideration of parenteral iron History of gastric bypass: - check B12 level - check folate level Problem List: 1. Severe anemia 2. Iron deficiency anemia 3. Abnormal uterine bleeding Other Findings/Comments: Please call [phone] with any questions or concerns. Consult Acknowledgment - Thank you for your consult request.
--- NOTE | 2017-03-27 11:59 | PN- Att Addend ---
Attending Addendum Attending Brief Note Patient seen and examined, feeling slightly better. Abdominal pain has improved. Patient received total of 3 units of RBCs and her H&H still remains pretty low. She has been evaluated by [facility] as well as hematology. Patient found to have severe iron deficiency. Vital Signs Date Time Temp Pulse Resp B/P B/P Pulse O2 O2 Flow FiO2 Mean Ox Delivery Rate 03/27 611 98.0 68 20 100/64 98 Room Air 03/26 2224 98.6 86 20 124/80 100 Room Air 03/26 2015 98.3 84 18 122/81 100 Room Air 02/05 1829 98.7 84 18 122/60 99 Room Air 02/05 1813 98.9 77 18 117/60 100 Room Air 02/05 1615 97.2 74 18 121/63 100 Room Air 02/05 1406 97.0 68 18 128/68 100 Room Air 02/05 1232 98.2 74 18 139/67 100 Room Air on exam; aox3, nad. cv; s1,s2, rrr resp; clear abd; soft, nt, bs+ ext; no edema. Laboratory Tests 03/27 03/26 0004 [id number] Hematology CBC w Diff NO MAN DIFF REQ NO MAN DIFF REQ WBC (4.8 - 10.8 /CUMM) 3.0 L 5.1 RBC (4.20 - 5.40 /CUMM) 3.16 L 3.49 L Hgb (12.0 - 16.0 G/DL) 6.1 *L 6.7 *L Hct (37 - 47 %) 19.9 *L 22.1 L MCV (81.0 - 99.0 FL) 62.8 L 63.4 L MCH (27.0 - 31.0 PG) 19.4 L 19.3 L MCHC (33.0 - 37.0 G/DL) 30.9 L 30.5 L RDW (11.5 - 14.5 %) 29.3 H 29.8 H Plt Count (130 - 400 /CUMM) 245 297 MPV (7.4 - 10.4 FL) 7.4 7.8 Gran % (42.2 - 75.2 %) 60.6 66.1 Lymphocytes % (20.5 - 51.1 %) 28.1 21.9 Monocytes % (1.7 - 9.3 %) 8.2 11.1 H Eosinophils % (0 - 5 %) 1.3 0.2 Basophils % (0.0 - 2.0 %) 1.8 0.7 Absolute Granulocytes (1.4 - 6.5 /CUMM) 1.8 3.4 Absolute Lymphocytes (1.2 - 3.4 /CUMM) 0.8 L 1.1 L Absolute Monocytes (0.10 - 0.60 /CUMM) 0.2 0.6 Absolute Eosinophils (0.0 - 0.7 /CUMM) 0 0 Absolute Basophils (0.0 - 0.2 /CUMM) 0.1 0 03/26 1529 Hematology CBC w Diff NO MAN DIFF REQ WBC (4.8 - 10.8 /CUMM) 4.9 RBC (4.20 - 5.40 /CUMM) 3.28 L Hgb (12.0 - 16.0 G/DL) 6.1 *L Hct (37 - 47 %) 20.1 L MCV (81.0 - 99.0 FL) 61.3 L MCH (27.0 - 31.0 PG) 18.6 L MCHC (33.0 - 37.0 G/DL) 30.3 L RDW (11.5 - 14.5 %) 29.2 H Plt Count (130 - 400 /CUMM) 313 MPV (7.4 - 10.4 FL) 6.9 L Gran % (42.2 - 75.2 %) 69.2 Lymphocytes % (20.5 - 51.1 %) 17.9 L Monocytes % (1.7 - 9.3 %) 10.8 H Eosinophils % (0 - 5 %) 0.2 Basophils % (0.0 - 2.0 %) 1.9 Absolute Granulocytes (1.4 - 6.5 /CUMM) 3.4 Absolute Lymphocytes (1.2 - 3.4 /CUMM) 0.9 L Absolute Monocytes (0.10 - 0.60 /CUMM) 0.5 Absolute Eosinophils (0.0 - 0.7 /CUMM) 0 Absolute Basophils (0.0 - 0.2 /CUMM) 0.1 A/P; 37-year-old female with past medical history significant for uterine fibroids, menorrhagia, history of gastric bypass in 2012 is placed on general medicine observation with the abdominal pain as well as acute anemia. Her anemia is multifactorial and is due to iron deficiency. Her iron levels are profoundly low. She has menorrhagia and also due to her gastric bypass and additional intake is not that great she's not taking any added. Her vitamin B12 and folate levels are also on the lower end of normal. She should be getting depletion for vitamin B12 and folate. She has been started on oral iron. Appreciate input from hematology in [facility]. Patient will have an outpatient follow-up with quality assurance advisor. She should also follow-up with alcohol rubber as an outpatient for possibility of receiving IV iron repletion. Will monitor H&H later today and if drops furthe, might need another tx. Will Dc her home tomorrow.
[2017-03-27 14:32] VITALS: BP 100/70
[2017-03-27 19:46] LABS: ABSOLUTE BASOPHIL COUNT 0 /CUMM (0.0-0.2); ABSOLUTE EOSINOPHIL COUNT 0 /CUMM (0.0-0.7); ABSOLUTE GRANULOCYTE CT 3.1 /CUMM (1.4-6.5); ABSOLUTE LYMPH COUNT 1.1 /CUMM (1.2-3.4); ABSOLUTE MONOCYTE COUNT 0.5 /CUMM (0.10-0.60); BASOPHIL % 0.1 % (0.0-2.0); EOSINOPHIL % 0.5 % (0-5); GRANULOCYTE % 65.2 % (42.2-75.2); HEMATOCRIT 21.6 % (37-47); MEAN CORPUSCULAR VOLUME 63.5 FL (81.0-99.0); MEAN PLATELET VOLUME 7.2 FL (7.4-10.4); PLATELET COUNT 315 /CUMM (130-400); RBC DISTRIBUTION WIDTH 29.8 % (11.5-14.5); RED BLOOD CELL CT 3.41 /CUMM (4.20-5.40)
[2017-03-27 19:47] LABS: WHITE BLOOD CELL COUNT 4.7 /CUMM (4.8-10.8)
[2017-03-27 22:11] VITALS: BP 100/58
--- NOTE | 2017-03-28 07:14 | PN- Housestaff ---
Delfino ALCARAZ,Adan 03/28/17 0714: Subjective Follow-up For: symptomatic anemia LUCI Abdominal pain Subjective: Seen and examined at [facility]. Endorses no complaints such as shortness of breath ,cp/palpitation,headaches,fever/chills. Review of Systems Constitutional: Reports: see HPI. Objective Last 24 Hrs of Vital Signs/I&O Vital Signs Date Time Temp Pulse Resp B/P B/P Pulse O2 O2 Flow FiO2 Mean Ox Delivery Rate 03/28 0648 97.9 60 20 130/60 99 Room Air 03/27 2211 99.0 66 20 100/58 99 Intake & Output 03/28 1600 03/28 0800 03/28 0000 Intake Total 800 500 Output Total Balance 800 500 Intake, Blood 200 300 Product Intake, Oral 600 200 Patient 83.915 kg Weight Weight Reported by Patient Measurement Method Physical Exam General Appearance: Alert, Oriented X3, Cooperative Other Physical Findings: kin No Significant Lesion Skin Temp/Moisture Exam: Warm/Dry Sepsis Skin Exam (color): Normal for Ethnicity HEENT pale conjuctiva Neck Supple, No JVD Lymphatic Cervical nl Cardiovascular Regular Rate, Normal S1, Normal S2 Lungs Clear to Auscultation, Normal Air Movement Abdomen Normal Bowel Sounds, Soft, mild tenderness on palpation of hpogastric area. No guearding or rebound tenderness Neurological Normal Speech Extremities No Clubbing, No Cyanosis, No Edema Vascular Normal Pulses, Pulses Symmetrical Current Medications: Current Medications Sig/T[place]ira Start time Last Medication Dose Route Stop Time Status Admin Acetaminophen 1,000 MG Q8P PRN 03/26 1245 DCD IV Ascorbic Acid 500 MG BID 03/26 2200 DCD 03/28 PO 0943 Cyanocobalamin 1,000 MCG DAILY 03/28 1000 DCD 03/28 PO 0943 Ferrous Sulfate 325 MG TID 03/27 2230 DCD 03/28 PO 0943 Hydromorphone HCl 0.4 MG Q4P PRN 03/26 1245 DCD IV Ondansetron HCl 4 MG Q6P PRN 03/26 1015 DCD 03/26 IV 1049 Thiamine HCl 100 MG DAILY 03/27 1407 DCD 03/28 PO 0943 Last 24 Hrs of Lab/Brett Results Last 24 Hrs of Labs/Mics: Laboratory Tests 03/28/17 0930: CBC w Diff NO MAN DIFF REQ, RBC 3.83 L, MCV 65.2 L, MCH 19.9 L, MCHC 30.5 L, RDW 30.8 H, MPV 7.4, Gran % 63.0, Lymphocytes % 23.8, Monocytes % 12.0 H, Eosinophils % 0.2, Basophils % 1.0, Absolute Granulocytes 2.2, Absolute Lymphocytes 0.8 L, Absolute Monocytes 0.4, Absolute Eosinophils 0, Absolute Basophils 0 03/28/17 0600: CBC w Diff Cancelled, WBC Cancelled, RBC Cancelled, Hgb Cancelled, Hct Cancelled , MCV Cancelled, MCH Cancelled, MCHC Cancelled, RDW Cancelled, Plt Count Cancelled, MPV Cancelled Assessment/Plan Assessment: This is a 37-year-old with a past medical history of uterine fibroids, menorrhagia, presents with acute onset of abdominal pain/bloating and a history of fatigue shortness of breath on exertion found to have a hemoglobin of 4.4 and a hematocrit of 15.5. Impression * Abdominal pain. Transient, now resolved. * Symptomatic anemia given the hemoglobin of 4.4 on presentation, fatigue and shortness of breath on exertion. She is now s/p 4 units PRBC with hemoglobin at 7.6. The low MCV and low ferritn and Iron suggests iron deficiency anemia. Her acute significant worsening of anemia is multifactorial given that she is not taking any iron supplements, she has a history of menorrhagia probably secondary to the uterine fibroids, and a decreased absorption of iron that can be seen in patients who have undergone gastric bypass. Plan Stable for discharge, with an acceptable hgb of 7.6 especially noting pt is asymptomatic. Niferex rx 1 po bid for iron replacement Pt is to f/u with heme/on within 1 week Pt is to f/u with senior engineering technician within 1 week for evaluation of possible AUB. Problem List: 1. Iron deficiency anemia 2. Severe anemia 3. Abdominal pain Pain Ratin Pain Location: NONE Pain Goal: Remain pain free Pain Plan: PER PATHWAY Tomorrow's Labs & Rationales: NONE-DISCHARGE Annita Lira MD 03/28/17 1124: Attending Review Statement Attending Statement Attending MD Statement: examined this patient, discuss w/resident/PA/PROFESSOR OF APOLOGETICS, agreed w/resident/PA/PROFESSOR OF APOLOGETICS, reviewed EMR data (avail), discussed with nursing, discussed with case mgmt, reviewed images, amended to note Attending Assessment/Plan: Patient seen and examined, overall feeling much better. She received another unit of RBC transfusion this morning. Her H&H has improved to 7.6 and 25 today. She is overall feeling much better. She was seen by a camp housekeeper this morning and they recommended to add iron pills. We will also give her some vitamin B12 and vitamin C. Patient is medically stable for discharge home today and will follow-up with the RECOOPERER Dr. Braun as well as camp housekeeper as an outpatient. She would also like to establish her care with one of the primary care doctors. We can refer to .
[2017-03-28 07:48] VITALS: BP 130/60
--- NOTE | 2017-03-28 07:58 | PN- Hematology ---
Subjective Subjective: She is receiving her fifth unit of packed RBC. Hemoglobin has been increasing slowly. She denies any new symptoms. Review of Systems Constitutional: Denies: chills, fever. Cardiovascular: Denies: chest pain, edema. Gastrointestinal: Denies: abdominal pain, melena, bloody stool. Genitourinary: Denies: dysuria, hematuria. Musculoskeletal: Denies: back pain. Neurological/Psychological: Denies: confusion. Hematologic/Endocrine: Denies: bruising, bleeding. All Other Systems: Reviewed and Negative Objective Vital Signs and I&Os Vital Signs Date Time Temp Pulse Resp B/P B/P Pulse O2 O2 Flow FiO2 Mean Ox Delivery Rate 03/28 0648 97.9 60 20 130/60 99 Room Air 03/27 2211 99.0 66 20 100/58 99 03/27 1432 98.3 82 18 100/70 98 Intake & Output 03/28 0800 03/28 0000 03/27 1600 03/27 0800 03/27 0000 03/26 1600 Intake Total 500 458 497 1680 350 Output Total Balance 500 956 740 3992 350 Intake, Blood 300 700 350 Product Intake, Oral 200 240 360 440 Number 1 Bowel Movements Patient 83.915 kg 83.915 kg Weight Weight Reported by Patient Measurement Method Physical Exam General Appearance: well developed/nourished, no apparent distress, alert, awake , comfortable Respiratory: normal breath sounds, chest non-tender, no respiratory distress Cardiovascular: regular rate/rhythm Abdomen: normal bowel sounds, soft, non-tender Extremities: no edema Neurologic/Psychiatric: awake, alert, oriented x 3 Skin: warm/dry Current Medications: Current Medications Sig/T[place]ira Start time Last Medication Dose Route Stop Time Status Admin Acetaminophen 1,000 MG Q8P PRN 03/26 1245 AC IV Ascorbic Acid 500 MG BID 03/26 2200 AC 03/27 PO 2209 Cyanocobalamin 1,000 MCG DAILY 03/28 1000 AC PO Ferrous Sulfate 325 MG TID 03/27 2230 AC 03/27 PO 2307 Hydromorphone HCl 0.4 MG Q4P PRN 03/26 1245 AC IV Influenza Virus 0.5 ML .STK-MED ONE 03/27 1913 DC Vaccine IM 03/27 1914 Ondansetron HCl 4 MG Q6P PRN 03/26 1015 AC 03/26 IV 1049 Thiamine HCl 100 MG DAILY 03/27 1407 AC PO Results Last 24 Hours of Lab Results: Laboratory Tests 03/28 03/27 0600 1905 Hematology CBC w Diff Cancelled NO MAN DIFF REQ WBC (4.8 - 10.8 /CUMM) Cancelled 4.7 L RBC (4.20 - 5.40 /CUMM) Cancelled 3.41 L Hgb (12.0 - 16.0 G/DL) Cancelled 6.5 *L Hct (37 - 47 %) Cancelled 21.6 L MCV (81.0 - 99.0 FL) Cancelled 63.5 L MCH (27.0 - 31.0 PG) Cancelled 19.0 L MCHC (33.0 - 37.0 G/DL) Cancelled 30.0 L RDW (11.5 - 14.5 %) Cancelled 29.8 H Plt Count (130 - 400 /CUMM) Cancelled 315 MPV (7.4 - 10.4 FL) Cancelled 7.2 L Gran % (42.2 - 75.2 %) 65.2 Lymphocytes % (20.5 - 51.1 %) 23.2 Monocytes % (1.7 - 9.3 %) 11.0 H Eosinophils % (0 - 5 %) 0.5 Basophils % (0.0 - 2.0 %) 0.1 Absolute Granulocytes (1.4 - 6.5 /CUMM) 3.1 Absolute Lymphocytes (1.2 - 3.4 /CUMM) 1.1 L Absolute Monocytes (0.10 - 0.60 /CUMM) 0.5 Absolute Eosinophils (0.0 - 0.7 /CUMM) 0 Absolute Basophils (0.0 - 0.2 /CUMM) 0 03/27 0755 Hematology CBC w Diff NO MAN DIFF REQ WBC (4.8 - 10.8 /CUMM) 3.0 L RBC (4.20 - 5.40 /CUMM) 3.16 L Hgb (12.0 - 16.0 G/DL) 6.1 *L Hct (37 - 47 %) 19.9 *L MCV (81.0 - 99.0 FL) 62.8 L MCH (27.0 - 31.0 PG) 19.4 L MCHC (33.0 - 37.0 G/DL) 30.9 L RDW (11.5 - 14.5 %) 29.3 H Plt Count (130 - 400 /CUMM) 245 MPV (7.4 - 10.4 FL) 7.4 Gran % (42.2 - 75.2 %) 60.6 Lymphocytes % (20.5 - 51.1 %) 28.1 Monocytes % (1.7 - 9.3 %) 8.2 Eosinophils % (0 - 5 %) 1.3 Basophils % (0.0 - 2.0 %) 1.8 Absolute Granulocytes (1.4 - 6.5 /CUMM) 1.8 Absolute Lymphocytes (1.2 - 3.4 /CUMM) 0.8 L Absolute Monocytes (0.10 - 0.60 /CUMM) 0.2 Absolute Eosinophils (0.0 - 0.7 /CUMM) 0 Absolute Basophils (0.0 - 0.2 /CUMM) 0.1 Assessment/Plan Assessment/Recommendations: Ms. Mathis is a 37-year-old female with uterine fibroid, menorrhagia, and gastric bypass in 2012 who presented to the hospital with abdominal pain, weakness, fatigue, and dyspnea on exertion. On presentation to the emergency room at [facility], she was noted to have severe microcytic anemia. Hemoglobin was 4.4 with a hematocrit of 15.5. Her MCV was 54.5. Iron study demonstrated serum iron of 12 with a ferritin of 0.9. Blood work suggests iron deficiency anemia. She has heavy menses and history of gastric bypass. She has received 5 units of packed RBC. Hemoglobin and hematocrit are slowly improving. She should have her CMP check. She'll need aggressive iron repletion for now and potentially parenteral iron repletion. Her vitamin B12 and folate are normal but on the low end. Given her gastric bypass, she may need endoscopic evaluation. She'll need to follow-up with her surgeon/sofa inspector. Iron deficiency anemia: - continue oral ferrous sulfate 325 mg t.i.d. with vitamin-C - consider parenteral iron as an outpatient - menorrhagia management as per Medical Assistant Float - follow up 1 to 2 weeks after discharge for consideration of parenteral iron History of gastric bypass: - follow up with surgeon/sofa inspector Please call [phone] with any questions or concerns. Problem List: 1. Severe anemia 2. Abnormal uterine bleeding 3. Iron deficiency anemia
[2017-03-28 10:23] LABS: ABSOLUTE BASOPHIL COUNT 0 /CUMM (0.0-0.2); ABSOLUTE EOSINOPHIL COUNT 0 /CUMM (0.0-0.7); ABSOLUTE GRANULOCYTE CT 2.2 /CUMM (1.4-6.5); ABSOLUTE LYMPH COUNT 0.8 /CUMM (1.2-3.4); ABSOLUTE MONOCYTE COUNT 0.4 /CUMM (0.10-0.60); EOSINOPHIL % 0.2 % (0-5); MEAN CORPUSCULAR HGB 19.9 PG (27.0-31.0); MEAN CORPUSCULAR HGB CONC 30.5 G/DL (33.0-37.0); MEAN CORPUSCULAR VOLUME 65.2 FL (81.0-99.0); MEAN PLATELET VOLUME 7.4 FL (7.4-10.4); PLATELET COUNT 271 /CUMM (130-400); RBC DISTRIBUTION WIDTH 30.8 % (11.5-14.5); RED BLOOD CELL CT 3.83 /CUMM (4.20-5.40); WHITE BLOOD CELL COUNT 3.4 /CUMM (4.8-10.8)
--- NOTE | 2017-03-28 15:47 | Discharge Summary ---
Hospital Course Allergies: Coded Allergies: NO KNOWN ALLERGIES (09/19/12) Discharge Instructions Medications at Discharge Discharge Medications: Start taking the following new medications: Iron Ag,Ps/C/Fa6/B12/Zn/SA/Sto (Niferex Tablet) 150MG-60-1 TABLET 1 Tablet ORAL TWICE DAILY Qty = 60 No Refills
== END 2017-03-28 14:12 | DRG 812 ==
LOC: ERH 03:34 → ERHI 07:00 → 2NA 07:00 → ENRESERV 17:26 → ENTRNSPT 20:00 → 2NA 20:30 → CMPTRNSPT 20:32 → 2NA 03-27 12:24 → ENPENDDIS 03-28 12:32 → ENTRNSPT 03-28 13:53 → EDTRNSPT 03-28 14:03 → EDTRNSPTSTS 03-28 14:03 → 2NA 03-28 14:12 → CMPTRNSPT 03-28 14:14
PROVIDERS: Pediatrics; Student in an Organized Health Care Education/Training Program
PROC: 30233N1 Transfusion of Nonautologous Red Blood Cells into Peripheral Vein, Percutaneous Approach (ICD-10-PCS; principal; 2017-03-26)
DX: D50.9 Iron deficiency anemia, unspecified (principal); Z90.6 Acquired absence of other parts of urinary tract; D25.9 Leiomyoma of uterus, unspecified; N92.0 Excessive and frequent menstruation with regular cycle; Z98.84 Bariatric surgery status; N93.8 Other specified abnormal uterine and vaginal bleeding
CPT/HCPCS: 2NAP; 36415; 74176; 81001; 86920; 93005; 93010; J0131; J1885; J2405; P9016; Q2036